=== PATIENT | female | born 1975 | race Caucasian/White ===

== ENCOUNTER 2023-12-05 09:11 | Emergency (ER) | payer OTHER, SELFPAY ==
[2023-12-05 09:11] VITALS: BP 144/97; PULSE 86; RESP 16; TEMP 36.1; O2SAT 100; BMI 30.9
--- NOTE | 2023-12-05 09:38 | US_ITS ---
STUDY: ULTRASOUND OF THE FEMALE PELVIS - COMPLETE REASON FOR EXAM: Female, 48 years old. Bleeding LMP: December 04, 2023. TECHNIQUE: Transvaginal TECHNICAL QUALITY: Adequate. COMPARISON: None. FINDINGS: The uterus is anteverted and is in a midline position. The uterus measures 9.3 cm x 5.6 x 5.6 cm. There is a Nabothian cyst of the cervix. The endometrium is thickened and measures 12.9 mm in thickness, and is hyperechoic. There is no demonstrated endometrial mass. The myometrium is thickened suggestive of possible adenomyosis. I.U.D. - The patient does not have an I.U.D. The right ovary is visualized. The right ovary measures 2.6 cm x 1.5 cm x 1.8 cm. There is no right ovarian cyst or ovarian mass. There is no visualized right adnexal mass or complex lesion. There is normal arterial and normal venous vascularity. The left ovary is visualized. The left ovary measures 4.7 cm x 4.1 cm x 3.7 cm. There is a 3.3 cm x 3.1 cm x 3 cm simple cyst in the left ovary. There is no visualized left adnexal mass or complex lesion. There is normal arterial and normal venous vascularity. There is no fluid in the cul-de-sac. US/Transvaginal Non- IMPRESSION: Thickened endometrium. Findings suggestive of adenomyosis of the uterus. There is a 3.3 cm x 3.1 sign by 3 cm simple cyst in the left ovary. Electronically Signed: Oz Bennett MD at 11:10 EDT ,
[2023-12-05 09:56] LABS: Absolute Neutrophil Count 2.8 X10^3/uL (2.0-7.7); Basophil# 0.02 X10^3/uL; Basophil% 0.4 % (0-1); Eosinophil# 0.09 X10^3/uL; Eosinophils% 1.9 % (0-5); Hematocrit 36.5 % (37-47); Hemoglobin 11.9 g/dL (12.0-15.0); Lymphocyte % 31.6 % (19-41); Mean Corp Hgb Conc 32.6 g/dL (32-36); Mean Corpuscular Volume 91.9 fL (81-99); Mean Platelet Vol. 9.2 fl (6.2-12.0); Monocyte# 0.35 X10^3/uL; Monocyte% 7.4 % (0-10); NRBC Flagged by Analyzer 0 % (0-5); Neutrophil # 2.78 X10^3/uL (2.7-7.7); Neutrophil % 58.5 % (47-70); Platelet Count 231 K/mm3 (150-450); RBC Distribution Width CV 13.5 % (11.6-14.6); RBC Distribution Width SD 45.8 fl (35.1-43.9); Red Blood Count 3.97 M/mm3 (4.2-5.4); White Blood Count 4.8 K/mm3 (4.4-11.0)
[2023-12-05 10:04] LABS: Partial Thromboplast Time 24.9 Seconds (24.1-36.2); Prothrombin Time (Protime)PT. 13.5 SECONDS (11.7-14.9)
[2023-12-05 10:31] LABS: Anion Gap 5 (5-15); BUN 13 mg/dL (7-18); BUN/Creat Ratio 15.5 RATIO (10-20); Calcium,Total 9.2 mg/dL (8.5-10.1); Chloride 109 mmol/L (98-107); Creatinine, Serum 0.84 mg/dL (0.55-1.02); EST Glomerular Filtration Rate 78 mL/min (>60); Est Glom Filt Rate - Afr Amer 94 mL/min (>60); Estimated Creatinine Clearance 80.22 ml/min; Glucose 112 mg/dL (74-106); Potassium 4.2 mmol/L (3.5-5.1); Sodium Level 139 mmol/L (136-145)
[2023-12-05 10:36] LABS: Internal QC Validated? YES +Cl - CLEAR BKGD; Pregnancy, Serum, hCG Quali. NEGATIVE Negative
[2023-12-05 11:11] VITALS: BP 136/90; PULSE 99; RESP 18; O2SAT 100
[2023-12-05 11:15] VITALS: BP 135/83; BP 136/90; BP 138/89; PULSE 102; PULSE 87; PULSE 88
--- NOTE | 2023-12-05 11:55 | EDS_ITS ---
HPI HPI - Female History of Present Illness Chief Complaint: Vag Bleeding Informant: patient and spouse/S.O. Narrative Narrative: Patient is a 48-year-old female with no significant past medical history. She states that she has not had a menstrual cycle for the past 2 months and in the last 1-2 days has had the start of a menstrual cycle and she states she is having heavier bleeding than normal. She denies any history of bleeding disorder or blood thinner use and she denies any sensation of chest discomfort or lightheadedness. She does not follow with an CLINICAL DOCUMENTATION MANAGER but states she contacted her family doctor because of the bleeding and was advised to come to the hospital for evaluation. Patient does states she is using approximately 1 pad per hour based on the saturation of blood. PFSH PFSH Home Medications ?Medication ?Instructions ?Recorded ?Last Taken ?Type norethindrone acetate 5 mg tablet 5 mg PO TID 7 days #21 tabs 12/05/23 Unknown Rx Allergy/AdvReac Type Severity Reaction Status Date / Time codeine Allergy Intermediate NEEDS Verified 12/05/23 09:14 FOLLOW-UP Sulfa (Sulfonamide Allergy Intermediate NEEDS Verified 12/05/23 09:14 Antibiotics) FOLLOW-UP Social History Smoking Status: Never smoker [facility] ED Constitutional Constitutional ED: Denies chills or fever(s) ENT ENT ED: Denies sore throat Cardiovascular Cardiovascular: Denies chest pain Respiratory/Chest Respiratory/Chest: Denies cough or dyspnea Gastrointestinal Gastrointestinal: Reports abdominal pain; Denies diarrhea, nausea or vomiting Genitourinary Genitourinary ED: Reports other Details: Positive vaginal bleeding ; Denies dysuria Musculoskeletal Musculoskeletal: Denies myalgias Integumentary Denies rash Neurologic Neurologic: Denies headache(s), paresthesias or weakness Hematologic/Lymphatic Hematologic/Lymphatic: Denies easy bleeding or easy bruising EXAM Physical Exam Const Vital Signs: 12/05/23 09:11 12/05/23 11:11 12/05/23 11:15 Temperature 96.9 F L Temperature Source Temporal Pulse Rate 86 99 Pulse Rate [Lying] 87 Pulse Rate [Sitting (for 1 minute prior to obtaining)] 88 Pulse Rate [Standing (for 1 minute prior to obtaining)] 102 H Respiratory Rate 16 18 Blood Pressure 144/97 H 136/90 H Blood Pressure [Lying] 135/83 H Blood Pressure [Sitting (for 1 minute prior to obtaining)] 138/89 H Blood Pressure [Standing (for 1 minute prior to obtaining)] 136/90 H Blood Pressure Mean 112 105 Blood Pressure Mean [Lying] 100 Blood Pressure Mean [Sitting (for 1 minute prior to obtaining)] 105 Blood Pressure Mean [Standing (for 1 minute prior to obtaining)] 105 Pulse Ox 100 100 Oxygen Delivery Method Room Air Room Air Positive well nourished and well developed General Appearance ED: well developed; Negative for pallor HEENT Reports moist mucous membranes Eyes PERRL and EOMs intact bilaterally General Eye ED: Negative for pale conjunctiva Neck supple Resp normal respiratory effort and clear to auscultation bilaterally Cardio regular rate and regular rhythm GI normal to inspection, nondistended, normoactive bowel sounds, soft to palpation, non-tender, non-distended and no masses Auscultation: normoactive bowel sounds Palpation: soft Narrative: External genitalia is normal. Speculum exam reveals approximately a shot glass full of dark red blood in the vaginal vault with minimal ooze of blood from the cervix which is closed. Back/Spine no CVA tenderness Extremity normal to inspection and full ROM Neuro oriented x3, CN's II-XII intact bilaterally and no sensory deficits noted Sensorium / Orientation: alert Motor Exam: strength 5/5 throughout Psych mental status grossly normal Skin no rashes or lesions noted and no wounds General Skin Exam: Negative for jaundice or pallor MDM MDM MDM Narrative Medical decision making narrative: Patient arrived to the ER hypertensive but otherwise with stable vitals. She reported that her mother went through the change in life in her mid 40s and she states she has been having irregular menstrual cycles for the past few months which would correlate with perimenopause. She denies any history of bleeding disorder or need for blood transfusion but with the persistent blood that she states is heavier in nature now with the abnormal periods she was concerned that she may need medication or procedure to help reverse or stop the bleeding. In order to ensure that she did not need a transfusion a basic workup was performed which shows a stable hemoglobin at 11.9 with normal platelet count and no elevation to her bleeding times. Transvaginal ultrasound confirmed no anatomic cause such as a large fibroid and just mention her thickened endometrium consistent with her symptoms. Patient was also not going against a ectopic threatened miscarriage or retained products of conception as the cause. The case was discussed with CLINICAL DOCUMENTATION MANAGER Dr. Odonnell who recommends patient be started on Aygestin to help control bleeding but as her orthostatic vital signs are negative she is not and she is not requiring a transfusion she is otherwise safe for discharge and outpatient follow-up. History & Record Review Discussion w/independent historian: Patient and Significant other Lab Data Attestation: I reviewed the patient's lab results. Labs: Laboratory Results - last 24 hr 12/05/23 09:45 WBC 4.8 RBC 3.97 L Hgb 11.9 L Hct 36.5 L MCV 91.9 MCH 30.0 MCHC 32.6 RDW Std Deviation 45.8 H RDW Coeff of Anita 13.5 Plt Count 231 MPV 9.2 Immature Gran % (Auto) 0.200 Neut % (Auto) 58.5 Lymph % (Auto) 31.6 Fannin % (Auto) 7.4 Eos % (Auto) 1.9 Baso % (Auto) 0.4 Absolute Neuts (auto) 2.8 Absolute Lymphs (auto) 1.50 Nucleated RBC % 0 PT 13.5 INR 1.0 APTT 24.9 Sodium 139 Potassium 4.2 Chloride 109 H Carbon Dioxide 25.0 Anion Gap 5 BUN 13 Creatinine 0.84 Estim Creat Clear Calc 80.22 Est GFR (MDRD) Af Amer 94 Est GFR (MDRD) Non-Af 78 BUN/Creatinine Ratio 15.5 Glucose 112 H Calcium 9.2 Serum , Qual NEGATIVE Radiography Diagnostic Testing: Clinical Impression(s) from Imaging Studies Transvaginal US 12/05/23 09:38 IMPRESSION: Thickened endometrium. Findings suggestive of adenomyosis of the uterus. There is a 3.3 cm x 3.1 sign by 3 cm simple cyst in the left ovary. Electronically Signed: Oz Bennett MD at 11:10 EDT , Discharge Plan Triage Chief Complaint: Vag Bleeding ED Provider: William Christopher Dx/Rx/DC Orders Clinical Impression: Dysfunctional uterine bleeding, Hypertension Instructions: ED Dysfunctional Uterine Bleeding Prescriptions: New norethindrone acetate 5 mg tablet 5 mg PO TID 7 Days Qty: 21 0RF Primary Care Provider: Maikel Kulkarni Referrals: Maikel Kulkarni DO [Primary Care Provider] - Yvette Odonnell MD [Med Staff - Active Staff] - Activity Restrictions/Additional Instructions: Please take the prescribed medication as directed to help slow your bleeding. Contact the CLINICAL DOCUMENTATION MANAGER's office today once discharged and schedule an appointment for reevaluation. If you have worsening of bleeding bouts, of passing out, or any further concerns please return to the ER for repeat evaluation Print Language: Telugu Disposition Disposition: Home, Self Care Discharge Date/Time: 12/05/23 12:09
== END 2023-12-05 12:09 | disposition home or self-care (01) ==
PROVIDERS: Emergency Provider Emergency Medicine; PCP Family Medicine; Visit Provider Emergency Medicine
DX: N93.8 Other specified abnormal uterine and vaginal bleeding (principal); I10 Essential (primary) hypertension
CPT/HCPCS: 76830; 80048; 84703; 85025; 85610; 85730; 99284; J7030

== ENCOUNTER 2023-12-12 06:09 | Emergency (ER) | payer OTHER, SELFPAY ==
[2023-12-12 06:11] VITALS: BP 167/96; PULSE 93; RESP 18; TEMP 36.7; O2SAT 100; BMI 30.4
[2023-12-12 06:41] LABS: Absolute Lymphocyte Count 1.27 X10^3/uL (0.83-4.51); Absolute Neutrophil Count 4.4 X10^3/uL (2.0-7.7); Basophil# 0.02 X10^3/uL; Basophil% 0.3 % (0-1); Eosinophil# 0.07 X10^3/uL; Eosinophils% 1.2 % (0-5); Hematocrit 33.3 % (37-47); Hemoglobin 10.6 g/dL (12.0-15.0); Lymphocyte # 1.27 X10^3/ul (0.83-4.51); Mean Corp Hgb Conc 31.8 g/dL (32-36); Mean Corpuscular Hgb 29.6 pg (27.0-32.0); Mean Platelet Vol. 8.8 fl (6.2-12.0); Monocyte# 0.32 X10^3/uL; Monocyte% 5.3 % (0-10); NRBC Flagged by Analyzer 0 % (0-5); Neutrophil # 4.35 X10^3/uL (2.7-7.7); Neutrophil % 71.7 % (47-70); Platelet Count 280 K/mm3 (150-450); RBC Distribution Width CV 14.5 % (11.6-14.6); RBC Distribution Width SD 48.8 fl (35.1-43.9); Red Blood Count 3.58 M/mm3 (4.2-5.4); White Blood Count 6.1 K/mm3 (4.4-11.0)
--- NOTE | 2023-12-12 06:43 | EDS_ITS ---
HPI HPI - Female History of Present Illness Chief Complaint: Vag Bleeding Informant: patient and spouse/S.O. Narrative Narrative: Patient is a 48-year-old female with past medical history of hypertension. She was seen in the ER recently secondary to vaginal bleeding. At that time she was worked up and did not have a complication or structural issue such as a hemorrhagic cyst or large fibroid and there was no need for blood transfusion. The case was discussed with [facility] and they recommended patient be placed on Aygestin. The patient states she followed up with OB and they continued the treatment. She states that she was having side effects such as headache nausea and abdominal pain and therefore she stopped the medication on Sunday afternoon. She states beginning Sunday she developed vaginal bleeding once again and the bleeding has persisted throughout the day. She states she is saturating a pad roughly every hour. She states she feels lightheaded and weak secondary to this. She denies any history of bleeding disorder or blood thinner use. She denies any concern for . However as her symptoms have returned and she feels unwell she presents for evaluation [facility] Medical History Hypertension Home Medications ?Medication ?Instructions ?Recorded ?Last Taken ?Type norethindrone acetate 5 mg tablet 5 mg PO TID 7 days #21 tabs 12/05/23 Unknown Rx lisinopril 10 mg tablet 10 mg PO DAILY 12/12/23 Unknown History norethindrone acetate 5 mg tablet 5 mg PO TID 7 days #21 tabs 12/12/23 Unknown Rx Allergy/AdvReac Type Severity Reaction Status Date / Time codeine Allergy Intermediate NEEDS Verified 12/12/23 06:10 FOLLOW-UP Sulfa (Sulfonamide Allergy Intermediate NEEDS Verified 12/12/23 06:10 Antibiotics) FOLLOW-UP Surgical History (Updated 12/12/23 @ 06:15 by Marina Douglass) History of delivery Social History Smoking Status: Never smoker ROS ROS ED Constitutional Constitutional ED: Denies chills or fever(s) Eyes Eyes: Denies blurry vision or change in vision ENT ENT ED: Denies sore throat Cardiovascular Cardiovascular: Denies chest pain, palpitations or racing heartbeat Respiratory/Chest Respiratory/Chest: Denies cough or dyspnea Gastrointestinal Gastrointestinal: Denies abdominal pain, diarrhea, nausea or vomiting Genitourinary Genitourinary ED: Reports other Details: Positive vaginal bleeding ; Denies dysuria Musculoskeletal Musculoskeletal: Denies myalgias Integumentary Denies rash Neurologic Neurologic: Reports weakness; Denies headache(s) Hematologic/Lymphatic Hematologic/Lymphatic: Denies easy bleeding or easy bruising EXAM Physical Exam Const Vital Signs: 12/12/23 06:11 12/12/23 06:49 Temperature 98.0 F Temperature Source Oral Pulse Rate 93 Pulse Rate [Lying] 77 Pulse Rate [Sitting (for 1 minute prior to obtaining)] 81 Pulse Rate [Standing (for 1 minute prior to obtaining)] 98 Respiratory Rate 18 Blood Pressure 167/96 H Blood Pressure [Lying] 121/70 H Blood Pressure [Sitting (for 1 minute prior to obtaining)] 134/83 H Blood Pressure [Standing (for 1 minute prior to obtaining)] 137/87 H Blood Pressure Mean 119 Blood Pressure Mean [Lying] 87 Blood Pressure Mean [Sitting (for 1 minute prior to obtaining)] 100 Blood Pressure Mean [Standing (for 1 minute prior to obtaining)] 103 Pulse Ox 100 Oxygen Delivery Method Room Air Positive well nourished and well developed General Appearance ED: well developed; Negative for pallor HEENT Reports moist mucous membranes HEENT Narrative: Normocephalic atraumatic Eyes PERRL and EOMs intact bilaterally General Eye ED: Negative for pale conjunctiva or scleral icterus Neck supple Resp normal respiratory effort and clear to auscultation bilaterally Cardio regular rate and regular rhythm Rate: other Other Details: Radial and carotid pulses are equal and symmetric GI normal to inspection, nondistended, normoactive bowel sounds, soft to palpation, non-tender, non-distended and no masses Auscultation: normoactive bowel sounds Palpation: soft Narrative: Patient deferred as this exam was performed just a few days ago and she feels like the bleeding is similar nature Back/Spine no CVA tenderness Extremity normal to inspection and full ROM Neuro oriented x3, CN's II-XII intact bilaterally and no sensory deficits noted Sensorium / Orientation: alert Motor Exam: strength 5/5 throughout Psych mental status grossly normal Skin no rashes or lesions noted and no wounds Skin Narrative: Capillary refills less than 3 seconds General Skin Exam: Negative for jaundice or pallor MDM MDM MDM Narrative Medical decision making narrative: Patient arrived to the ER slightly hypertensive but has a past medical history of this. She was recently worked up 1 week ago for the same event with a transvaginal ultrasound and basic lab work and there was no clinically significant findings. As the patient was on Aygestin and then stopped this breakthrough bleeding is to be expected. However with potential that she is having an acute blood loss anemia as she reports weakness associated with the bleeding or potentially has a complication even though last week was negative I did elect to repeat laboratory findings. Patient's hemoglobin did drop from 11.9-10.6 but this is still well above a transfusion value. Her test remains negative going against a complication. Orthostatic vital signs were also negative. I discussed the case with [facility] on-call Dr. Canseco. She agrees that as there is no need for a blood transfusion and there is no complication that there is no need for admission or further workup. She does recommend patient go back on her Aygestin to control bleeding follow-up on an outpatient basis. The patient reports hydration helps her feel better so she was given 2 L of fluid and following this vitals have remained stable and she is otherwise safe for discharge. History & Record Review Discussion w/independent historian: Patient and Significant other Lab Data Labs: Laboratory Results - last 24 hr 12/12/23 06:35 WBC 6.1 RBC 3.58 L Hgb 10.6 L Hct 33.3 L MCV 93.0 MCH 29.6 MCHC 31.8 L RDW Std Deviation 48.8 H RDW Coeff of Anita 14.5 Plt Count 280 MPV 8.8 Immature Gran % (Auto) 0.500 Neut % (Auto) 71.7 H Lymph % (Auto) 21.0 [place] % (Auto) 5.3 Eos % (Auto) 1.2 Baso % (Auto) 0.3 Absolute Neuts (auto) 4.4 Absolute Lymphs (auto) 1.27 Nucleated RBC % 0 Sodium 139 Potassium 3.9 Chloride 109 H Carbon Dioxide 23.0 Anion Gap 7 BUN 12 Creatinine 0.86 Estim Creat Clear Calc 77.81 Est GFR (MDRD) Af Amer 91 Est GFR (MDRD) Non-Af 75 BUN/Creatinine Ratio 13.9 Glucose 129 H Calcium 9.3 Serum , Qual NEGATIVE Discharge Plan Triage Chief Complaint: Vag Bleeding ED Provider: William Christopher Dx/Rx/DC Orders Clinical Impression: Dysfunctional uterine bleeding, Hypertension Instructions: ED Dysfunctional Uterine Bleeding Prescriptions: New norethindrone acetate 5 mg tablet 5 mg PO TID 7 Days Qty: 21 0RF No Action norethindrone acetate 5 mg tablet 5 mg PO TID 7 Days Qty: 21 0RF lisinopril 10 mg tablet 10 mg PO DAILY Primary Care Provider: Maikel Kulkarni Referrals: Vanessa Ashford MD [Med Staff - Active Staff] - Maikel Kulkarni DO [Primary Care Provider] - Activity Restrictions/Additional Instructions: Please follow-up with [facility] for repeat evaluation and return to the ER should you have any further concerns Print Language: Egyptian Disposition Disposition: Home, Self Care
[2023-12-12 06:49] VITALS: BP 121/70; BP 134/83; BP 137/87; PULSE 77; PULSE 81; PULSE 98
[2023-12-12 06:50] LABS: Internal QC Validated? YES +Cl - CLEAR BKGD; Pregnancy, Serum, hCG Quali. NEGATIVE Negative
[2023-12-12 06:54] LABS: Anion Gap 7 (5-15); BUN 12 mg/dL (7-18); BUN/Creat Ratio 13.9 RATIO (10-20); Calcium,Total 9.3 mg/dL (8.5-10.1); Chloride 109 mmol/L (98-107); Creatinine, Serum 0.86 mg/dL (0.55-1.02); EST Glomerular Filtration Rate 75 mL/min (>60); Est Glom Filt Rate - Afr Amer 91 mL/min (>60); Estimated Creatinine Clearance 77.81 ml/min; Glucose 129 mg/dL (74-106); Potassium 3.9 mmol/L (3.5-5.1); Sodium Level 139 mmol/L (136-145)
[2023-12-12] MEDS: 0.9% Normal Saline (1000mL) 1,000 ML 999 ML IV ×2 (07:04→08:14)
--- NOTE | 2023-12-12 07:28 | ED.RN ---
Dr. Christopher bedside
[2023-12-12 08:10] VITALS: BP 132/76; PULSE 69; RESP 16; O2SAT 100
[2023-12-12 09:00] VITALS: BP 136/74; PULSE 81; RESP 16; TEMP 36.7; O2SAT 100
== END 2023-12-12 09:01 | disposition home or self-care (01) ==
PROVIDERS: Emergency Provider Emergency Medicine; PCP Family Medicine; Visit Provider Emergency Medicine
DX: N93.8 Other specified abnormal uterine and vaginal bleeding (principal); I10 Essential (primary) hypertension; Z79.899 Other long term (current) drug therapy
CPT/HCPCS: 80048; 84703; 85025; 96360; 96361; 99284; J7030; A4216